=== PATIENT | male | born 1955 | race Caucasian/White ===

== ENCOUNTER 2018-06-27 08:28 | Day surgery (SDC) | payer BC ==
[~2018-06-27] VITALS: Ht 170.2 cm; Wt 88.0 kg
[~2018-06-27 08:28] MED LIST: ABAC300; ALBU90OI INH; AMLO5 PO; ASPI81CH PO; ATOR20 PO; CELE200 PO; CHLO25B PO; CYCL10 PO; Crestor20 MG PO; ESOM20; FLUSAL5005 INH; GABA600 PO; HYDMOR2 PO; HYDMOR4 PO; LANS15EC PO; LANS30EC PO; LISI20 PO; MEDICAL MARIJUANA; METO25ER PO; NITR.4SL SL; NITR.8TP TOP; OXYC40ER; PREG50; Super B Comple150 MG PO; VENL150ER PO; VENL75ER PO; VENLAFAXINE PO; [UNRECOGNIZED DRUG - OTHER]; [UNRECOGNIZED DRUG - OTHER] PO; [UNRECOGNIZED DRUG - REMARK]
[2018-06-27] MEDS ORDERED: Norco 10-325 T1 EACH PO (08:31)
[2018-06-27] MEDS ORDERED: TERBINAFINE PO (08:40)
[2018-06-27] MEDS ORDERED: LANS15EC PO (08:59)
== END 2018-06-27 15:30 | disposition short-term general hospital (02) ==
LOC: MHTC 08:28
DX: I25.110 Atherosclerotic heart disease of native coronary artery with unstable angina pectoris (principal); I10 Essential (primary) hypertension; G47.33 Obstructive sleep apnea (adult) (pediatric); J45.909 Unspecified asthma, uncomplicated; K21.9 Gastro-esophageal reflux disease without esophagitis; G89.4 Chronic pain syndrome; Z79.82 Long term (current) use of aspirin; Z79.899 Other long term (current) drug therapy; Z87.891 Personal history of nicotine dependence
CPT/HCPCS: 85347; 92978; 93458; 99152; 99153; C1753; C1769; C1894; J1200; J1644; J1720; J2250; J3010; J7030; Q9967

== ENCOUNTER 2021-12-22 12:40 | Day surgery (SDC) | payer MEDICARE ==
[~2021-12-22] VITALS: Ht 167.6 cm; Wt 82.8 kg
[~2021-12-22 12:40] MED LIST changes: +Norco 10-325 T1 EACH PO; +TERBINAFINE PO
[2021-12-22] MEDS ORDERED: PRAV20 PO (13:16)
== END 2021-12-22 15:45 | disposition home or self-care (01) ==
LOC: ORSCSDS 12:40
PROVIDERS: Student in an Organized Health Care Education/Training Program
PROC: 0DB58ZX Excision of Esophagus, Via Natural or Artificial Opening Endoscopic, Diagnostic (ICD-10-PCS; principal; 2021-12-22 14:00)
PROC: 0D758ZZ Dilation of Esophagus, Via Natural or Artificial Opening Endoscopic (ICD-10-PCS; principal; 2021-12-22 14:00)
PROC: 0DBN8ZX Excision of Sigmoid Colon, Via Natural or Artificial Opening Endoscopic, Diagnostic (ICD-10-PCS; principal; 2021-12-22 14:00)
PROC: 0DB68ZX Excision of Stomach, Via Natural or Artificial Opening Endoscopic, Diagnostic (ICD-10-PCS; principal; 2021-12-22 14:00)
DX: R13.10 Dysphagia, unspecified (principal); K21.9 Gastro-esophageal reflux disease without esophagitis; K31.7 Polyp of stomach and duodenum; Z12.11 Encounter for screening for malignant neoplasm of colon; Z86.010 Personal history of colon polyps; K29.40 Chronic atrophic gastritis without bleeding; K64.4 Residual hemorrhoidal skin tags; K57.30 Diverticulosis of large intestine without perforation or abscess without bleeding; I10 Essential (primary) hypertension; Z79.899 Other long term (current) drug therapy
CPT/HCPCS: 88305; 88342; J0330; J0461; J2405; J2704; J7120

== ENCOUNTER → 2022-09-12 | Outpatient (CLI) | payer MEDICARE ==
[~2022-09-12] MED LIST changes: +PRAV20 PO
[2022-09-12 16:29] LABS: BASOPHILS ABSOLUTE AUTO 0.05 K/mm3 (0.00-0.23); BASOPHILS PERCENT AUTO 1 % (0-2); EOSINOPHILS ABSOLUTE AUTO 0.25 K/mm3 (0.00-0.68); EOSINOPHILS PERCENT AUTO 4 % (0-6); Hematocrit 41.9 % (37.0-53.0); Hemoglobin 13.7 g/dL (13.5-17.5); IMMATURE GRAN ABSOLUTE AUTO 0.03 K/mm3 (0.00-0.10); IMMATURE GRAN PERCENT AUTO 0 % (0-1); LYMPHOCYTES ABSOLUTE AUTO 1.17 K/mm3 (0.84-5.20); LYMPHOCYTES PERCENT AUTO 17 % (21-46); MONOCYTES ABSOLUTE AUTO 0.72 K/mm3 (0.16-1.47); MONOCYTES PERCENT AUTO 10 % (4-13); Mean Corpuscular HGB 30.1 pg (26.0-34.0); Mean Corpuscular HGB Conc 32.7 g/dL (31.5-36.5); Mean Corpuscular Volume 92 fL (80-100); Mean Platelet Volume 9.7 fL (9.1-12.4); NEUTROPHILS ABSOLUTE AUTO 4.89 K/mm3 (1.96-9.15); NEUTROPHILS PERCENT AUTO 69 % (41-73); Platelet Count 233 K/mm3 (150-400); RDW Coefficient Variation 13.5 % (11.7-14.2); RDW Standard Deviation 45.7 fL (35.1-46.3); Red Blood Cell Count 4.55 M/mm3 (4.30-5.90); White Blood Cell Count 7.11 K/mm3 (4.00-11.30)
[2022-09-12 16:32] LABS: Bun/Creatinine Ratio 12.5 (12.0-20.0); Calcium, Blood 8.7 mg/dL (8.5-10.1); Creatinine, Blood 1.28 mg/dL (0.60-1.20); Potassium, Blood 4.1 mmol/L (3.5-5.5)
== END | disposition home or self-care (01) ==
LOC: LAB 16:24 → LAB SHORT 16:24
PROVIDERS: Family Medicine
DX: R07.9 Chest pain, unspecified (principal)
CPT/HCPCS: 80048; 84484; 85025

== ENCOUNTER 2023-01-23 06:13 | Day surgery (SDC) | payer MEDICARE ==
[~2023-01-23] VITALS: Ht 167.6 cm; Wt 80.5 kg
[2023-01-23] MEDS ORDERED: TIZA4 (06:56)
[2023-01-23] MEDS ORDERED: HYDR10 (06:57)
[2023-01-23] MEDS ORDERED: ALBU90OI (06:57)
[2023-01-23] MEDS ORDERED: FLUT1DIS2 (06:57)
[2023-01-23] MEDS ORDERED: GUAI600T33 (06:58)
[2023-01-23] MEDS ORDERED: ISODIN10 (07:09)
--- NOTE | 2023-01-23 07:42 | NUR ---
01/23/23 0742 Carmenza Daly PT DENIES ALLERGY TO IODINE AND SAYS BETADINE IS OK.
--- NOTE | 2023-01-23 08:01 | NUR ---
01/23/23 0801 Natalie Mahajan 1 MG EPI ADDED TO THE FIRST BAG OF LR PER ORDER FOR IRRIGATION AT [facility].
[2023-01-23 11:19] VITALS: BP 151/81
== END 2023-01-23 10:00 | disposition home or self-care (01) ==
LOC: ORSCSDS 06:13
PROVIDERS: Orthopaedic Surgery
PROC: 0SBC4ZZ Excision of Right Knee Joint, Percutaneous Endoscopic Approach (ICD-10-PCS; principal; 2023-01-23 07:30)
DX: S83.241A Other tear of medial meniscus, current injury, right knee, initial encounter (principal); S83.281A Other tear of lateral meniscus, current injury, right knee, initial encounter; M94.261 Chondromalacia, right knee; I10 Essential (primary) hypertension; E78.5 Hyperlipidemia, unspecified; G47.33 Obstructive sleep apnea (adult) (pediatric); J45.909 Unspecified asthma, uncomplicated; G51.0 Bell's palsy; Z87.891 Personal history of nicotine dependence; Z79.899 Other long term (current) drug therapy; Z79.82 Long term (current) use of aspirin
CPT/HCPCS: J0171; J0690; J1100; J2250; J2405; J2704; J3010; J7120

== ENCOUNTER 2024-07-09 08:58 | Day surgery (SDC) | payer MEDICARE ==
[~2024-07-09] VITALS: Ht 167.6 cm; Wt 83.7 kg
[2024-07-09] VITALS (16 sets, daily range): BP systolic 130–158; BP diastolic 69–94
[~2024-07-09 08:58] MED LIST changes: +CeFAZolin Sodium 2,000 MG in NS 100 ML IV SCH; +FLUT1DIS2; +GUAI600T33; +HYDR10; +ISODIN10 PO; +Lactated Ringer's 1,000 ML IV SCH; +TIZA4
[2024-07-09] MEDS ORDERED: Bupivacaine 0.5% HCl 5 MG/ML 30MLVIAL ONE (09:13)
--- NOTE | 2024-07-09 11:39 | NUR ---
PRE OP NOTE PT A&OX4, BREATHING RA, NO COMPLAINTS. CHRONIC PAIN TO KNEE. AT BEDSIDE. Ambulatory in Day Surgery Patient confirms NPO status and agrees with scheduled surgery. Pre-Op teaching done. Pt verbalizes understanding.GLASSES GIVEN TO , ALL OTHER BELONGINGS IN P[facility] BELOW STRETCHER.
[2024-07-09] MEDS ORDERED: propofoL 20 ML IV ONE (11:42)
[2024-07-09] MEDS ORDERED: FentaNYL Citrate 50 MCG/ML 2 ML Injection ONE ×2 (11:42→14:10)
[2024-07-09] MEDS ORDERED: Rocuronium Bromide 10 MG/ML 5ML Injection IV ONE ×2 (11:43→12:31)
[2024-07-09] MEDS ORDERED: Ketorolac Tromethamine 30mg Vial ONE (12:03)
[2024-07-09] MEDS ORDERED: Ondansetron HCl 2 MG / ML 2ML Vial ONE (12:03)
[2024-07-09] MEDS ORDERED: Dexamethasone Sod Phos 10 MG/ML 1ML VIAL ONE (12:03)
[2024-07-09] MEDS ORDERED: Glycopyrrolate 0.2 MG/ML 5ML VIAL ONE (12:20)
[2024-07-09] MEDS ORDERED: Sugammadex Sodium 200 MG/2ML SDV (100 MG/ML) ONE (13:39)
[2024-07-09] MEDS ORDERED: Albuterol 2.5 MG/3 ML VIAL INH PRN (13:45)
[2024-07-09] MEDS ORDERED: HYDROmorphone HCl/Pf 1MG SYR IV PRN (13:45)
[2024-07-09] MEDS ORDERED: FentaNYL Citrate 50 MCG/ML 2 ML Injection IV PRN (13:45)
[2024-07-09] MEDS ORDERED: Droperidol 5 mg/2 ml Vial IV PRN (13:45)
[2024-07-09] MEDS ORDERED: OxyCODONE 5 mg/Acetamin 325 mg TABLET PO PRN (14:40)
--- NOTE | 2024-07-09 15:51 | NUR ---
Patient up to Ambulate independently. Gait steady. Discharge instructions reviewed with patient. Patient verbalizes understanding. Copy given to patient to take home, WELL FAMILY. DR BEEN TO BEDSIDE AND DISCUSSED PT'S PROCEDURE/DISCHARGE INSTRUCTIONS WELL. PT TOLERATING PO.REPORTS PAIN DOING BETTER, REPORTS READY TO GO HOME. Patient States Post-Procedure ride home has been arranged. Discharged via wheelchair to private car for ride home.
== END 2024-07-09 15:51 | disposition home or self-care (01) ==
LOC: ORSCMMR 08:58 → ORD 10:30 → ORSCMMR 10:30
PROVIDERS: Surgery
PROC: 0WUF4JZ Supplement Abdominal Wall with Synthetic Substitute, Percutaneous Endoscopic Approach (ICD-10-PCS; principal; 2024-07-09 10:30)
PROC: 3E0T3BZ Introduction of Anesthetic Agent into Peripheral Nerves and Plexi, Percutaneous Approach (ICD-10-PCS; principal; 2024-07-09 10:30)
PROC: 0WBH4ZZ Excision of Retroperitoneum, Percutaneous Endoscopic Approach (ICD-10-PCS; principal; 2024-07-09 10:30)
DX: K43.0 Incisional hernia with obstruction, without gangrene (principal); M62.08 Separation of muscle (nontraumatic), other site; K66.0 Peritoneal adhesions (postprocedural) (postinfection); I10 Essential (primary) hypertension; I25.10 Atherosclerotic heart disease of native coronary artery without angina pectoris; Z87.891 Personal history of nicotine dependence; G47.33 Obstructive sleep apnea (adult) (pediatric); J45.909 Unspecified asthma, uncomplicated; K21.9 Gastro-esophageal reflux disease without esophagitis; G51.0 Bell's palsy; Z79.899 Other long term (current) drug therapy; Z79.82 Long term (current) use of aspirin
CPT/HCPCS: A9270; C1781; J0690; J1100; J1885; J2405; J2704; J3010; J7120